=== PATIENT | male | born 1995 | race Caucasian/White ===

== ENCOUNTER 2024-11-21 21:28 | Emergency (ER) | payer OTHER, BC ==
[~2024-11-21] VITALS: Ht 175.2 cm; Wt 129.3 kg
[~2024-11-21 21:28] MED LIST: BENADRYL50 MG PO; HYDROCODONE BIT1 T11 PO; LIDEX0.05% T; LOTRISONE 0.05%1 CRE TP; Motrin,Rufen800 MG PO; PREDNICOT20 MG PO
[2024-11-21 21:45] VITALS: BP 175/94
[2024-11-21] MEDS ORDERED: Ketorolac Tromethamine 60 MG/2 ML VIAL IM ONE (22:20)
[2024-11-21] MEDS ORDERED: Dexamethasone Sodium Phospha 20 MG/5 ML VIAL IM ONE (22:20)
[2024-11-21] MEDS ORDERED: Cyclobenzaprine Hydrochlorid 10 MG TAB PO ONE (22:20)
[2024-11-22] MEDS ORDERED: MELOXICAM15 MG PO (00:38)
[2024-11-22] MEDS ORDERED: MEDROL DOSEPAK4 MG PO (00:38)
[2024-11-22] MEDS ORDERED: CYCLOBENZAPRINE5 M3 PO (00:38)
[2024-11-22] MEDS ORDERED: LIDOCAINE PAIN1 EACH T (00:38)
== END 2024-11-22 01:01 | disposition home or self-care (01) ==
LOC: ED 21:28
DX: M62.830 Muscle spasm of back (principal); M54.50 Low back pain, unspecified; Z96.22 Myringotomy tube(s) status